=== PATIENT | female | born 1955 | race Caucasian/White ===

== ENCOUNTER → 2020-01-31 12:52 | Outpatient (CLI) | payer MEDICARE, OTHER, SELFPAY ==
--- NOTE | 2020-01-31 13:04 | US_ITS ---
PROCEDURE: US FNA THYROID CLINICAL INDICATION: RT THYROID NODULE COMPARISON: No exams were available for comparison TECHNIQUE: Following obtaining informed consent, using aseptic technique and local anesthesia with buffered lidocaine, fine-needle aspiration was performed of the nodule of interest using sonographic guidance. 3 passes were made into the nodule with a 21-gauge needle. Specimen was given to cytology. FINDINGS: CYTOLOGY: Negative for malignant cells IMPRESSION: Uneventful FNA of the right lobe of the thyroid gland nodule negative for malignant cells. The patient tolerated the procedure well without evidence of immediate complications and left the ultrasound suite in stable condition. Dictated by: Gordo Morton MD 02/23/2020 09:07 Electronically signed by Gordo Morton MD in [place] 02/23/2020 09:07
== END ==
PROVIDERS: PCP Nurse Practitioner Family; Visit Provider Otolaryngology
DX: D34 Benign neoplasm of thyroid gland (principal)
CPT/HCPCS: 10005; 76942; 88173